=== PATIENT | female | born 1950 | race Caucasian/White ===

== ENCOUNTER 2018-08-16 04:55 | Inpatient (IN) ==
[2018-08-06 12:24] LABS: Appearance,Urine CLEAR; Bilirubin,Urine NEG (NEG); Color,Urine YELLOW; Glucose,Urine (UA) NEGATIVE (NEG); Leukocyte Esterase,Urine NEG /uL (NEG); Protein,Urine NEG (NEG); Specific Gravity,Urine 1.017 (1.000-1.035); Urine Blood NEG mg/dL (<0.03); Urobilinogen,Urine NEG (NEG)
[2018-08-06 12:58] LABS: Basophils # (Auto) 0 K/mcL (0.0-0.3); Basophils % (Auto) 0.5 % (0.0-2.0); Eosinophils # (Auto) 0.1 K/mcL (0.0-0.7); Eosinophils % (Auto) 2.5 % (0.0-7.0); Granulocytes % (Auto) 73.2 % (38.0-78.0); Lymphocytes # (Auto) 0.8 K/mcL (1.5-4.8); Lymphocytes % (Auto) 13.9 % (15.5-49.0); Mean Cell Volume 92.6 fL (80.0-100.0); Mean Corpuscular HGB Conc 34.2 g/dL (31.0-36.0); Mean Corpuscular Hemoglobin 31.6 pg (26.0-34.0); Monocytes # (Auto) 0.6 K/mcL (0.1-0.9); Monocytes % (Auto) 9.9 % (1.0-12.0); Platelet Count 380 K/mcL (140-440); RBC 4.04 M/mcL (4.00-5.20); Red Cell Distribution Width 13.1 % (11.5-14.5)
[2018-08-06 13:31] LABS: ALT/SGPT 13 U/l (0-40); Albumin 3.9 gm/dL (3.2-5.2); Albumin/Globulin Ratio 1.3 (1.0-2.3); Alkaline Phosphatase 61 U/L (39-117); Blood Urea Nitrogen 13 mg/dl (8-23)
[2018-08-16] MEDS ORDERED: ceFAZolin 1 GM VIAL IV SCH (05:00)
[2018-08-16] MEDS ORDERED: IPRATROPIUM/ALBUTEROL 3 ML AMPUL.NEB NEB ONE (07:18)
[2018-08-16] MEDS ORDERED: ONDANSETRON 4 MG/2 ML VIAL IV ONE (07:35)
[2018-08-16] MEDS ORDERED: LIDOCAINE HCL/PF 100 MG/5 ML SYRINGE IV ONE (07:35)
[2018-08-16] MEDS ORDERED: fentaNYL 250 MCG/5 ML VIAL IV ONE (07:35)
[2018-08-16] MEDS ORDERED: MIDAZOLAM 5 MG/5 ML VIAL IV ONE (07:35)
[2018-08-16] MEDS ORDERED: ePHEDrine 50 MG/ML AMPUL IV ONE (07:35)
[2018-08-16] MEDS ORDERED: TRANEXAMIC ACID 1,000 MG/10 ML VIAL IV ONE (07:35)
[2018-08-16] MEDS ORDERED: GLYCOPYRROLATE 0.2 MG/ML VIAL IV ONE (07:35)
[2018-08-16] MEDS ORDERED: DEXAMETHASONE 10 MG/ML VIAL IV ONE (07:35)
[2018-08-16] MEDS ORDERED: PROPOFOL 200 MG/20 ML VIAL IV ONE (07:35)
[2018-08-16] MEDS ORDERED: PHENYLEPHRINE 10 MG/ML VIAL IV ONE (07:35)
[2018-08-16] MEDS ORDERED: GUM MASTIC/STORAX/MSAL/ALCOHOL 1 DOSE DROPERETTE TOPICAL ONE (08:37)
[2018-08-16] MEDS ORDERED: GELATIN SPONGE,ABSORBABLE 1 EACH SPONGE TOPICAL ONE (08:38)
[2018-08-16] MEDS ORDERED: GELATIN SPONGE,ABSORBABLE 1 GM POWDER TOPICAL ONE (08:40)
[2018-08-16] MEDS ORDERED: THROMBIN (BOVINE) 5,000 UNIT VIAL TOPICAL ONE (08:50)
[2018-08-16] MEDS ORDERED: HEPARIN 20,000 UNIT/ML VIAL IR ONE (08:52)
[2018-08-16] MEDS ORDERED: CALCIUM GLUCONATE 4.65 MEQ/10 ML VIAL TOPICAL ONE (08:53)
[2018-08-16] MEDS ORDERED: ACETAMINOPHEN 700 MG/70 ML BOTTLE IV ONE (09:56)
[2018-08-16] MEDS ORDERED: PROMETHAZINE 25 MG/ML VIAL IM PRN (09:56)
[2018-08-16] MEDS ORDERED: METHOCARBAMOL 1,000 MG/10 ML VIAL IV PRN (09:56)
[2018-08-16] MEDS ORDERED: METOCLOPRAMIDE 10 MG/2 ML VIAL IV PRN (09:56)
[2018-08-16] MEDS ORDERED: MEPERIDINE 25 MG/ML SYRINGE IV PRN (09:56)
[2018-08-16] MEDS ORDERED: ATROPINE SULFATE 0.4 MG/ML VIAL IV PRN (09:56)
[2018-08-16] MEDS ORDERED: diphenhydrAMINE 50 MG/ML VIAL IV PRN (09:56)
[2018-08-16] MEDS ORDERED: ePHEDrine 50 MG/ML AMPUL IV PRN (09:56)
[2018-08-16] MEDS ORDERED: PROMETHAZINE 25 MG/ML VIAL IV PRN (09:56)
[2018-08-16] MEDS ORDERED: HYDROmorphone 2 MG/ML VIAL IV PRN ×2 (09:56→11:25)
[2018-08-16] MEDS ORDERED: METOPROLOL TARTRATE 5 MG/5 ML VIAL IV PRN (09:56)
[2018-08-16] MEDS ORDERED: MEPERIDINE 50 MG/ML INJECTION IM PRN (09:56)
[2018-08-16] MEDS ORDERED: ONDANSETRON 4 MG/2 ML VIAL IV PRN (09:56)
[2018-08-16] MEDS ORDERED: IPRATROPIUM/ALBUTEROL 3 ML AMPUL.NEB NEB PRN (09:56)
[2018-08-16] MEDS ORDERED: FLUMAZENIL 0.1 MG/ML ML IV PRN (09:56)
[2018-08-16] MEDS ORDERED: LACTATED RINGERS 1,000 ML IV SCH (10:00)
[2018-08-16] MEDS ORDERED: BUPIVACAINE 0.25% 50 ML VIAL IJ ONE (10:54)
--- NOTE | 2018-08-16 11:12 | Brief Operative Note ---
Date of procedure: 08/16/18 Pre-op diagnosis: stenosis L5S1 Post-op diagnosis: same Procedure: decompression and fusion L5S1 Grafts/Implants: Yes Anesthesia: GETA Complications: none Surgeon: Lamonte Contreras Continuous Improvement Engineer: Isamar Alcaraz Estimated blood loss (cc): 100 Specimens Removed/Pathology: none sent Condition: stable Disposition: PACU
[2018-08-16] MEDS ORDERED: ONDANSETRON ODT 4 MG TABLET SL PRN (11:25)
[2018-08-16] MEDS ORDERED: BENZOCAINE/MENTHOL 1 LOZENGE PO PRN (11:25)
[2018-08-16] MEDS: fentaNYL 100 MCG/2 ML VIAL IV PRN ×2 (11:42→11:46)
[2018-08-16] MEDS: 0.9 % SODIUM CHLORIDE 10 ML SYRINGE IV SCH ×3 (12:50→23:45)
[2018-08-16] MEDS: 0.9 % SODIUM CHLORIDE 1,000 ML IV SCH ×2 (12:50→17:43)
[2018-08-16] MEDS: ceFAZolin 1 GM VIAL IV SCH ×2 (15:04→23:03)
[2018-08-16] MEDS: HYDROCODONE/APAP 7.5/325MG TABLET PO PRN ×2 (15:31→19:43)
[2018-08-16] MEDS ORDERED: ACETAMINOPHEN 500 MG TABLET PO PRN (16:48)
[2018-08-16] MEDS ORDERED: FLUTICASONE PROPIONATE SPRAY.NAS NS PRN (16:50)
[2018-08-16] MEDS: SERTRALINE 50 MG TABLET PO SCH (17:49)
[2018-08-16] MEDS ORDERED: DIVALPROEX 125 MG CAP.SPRINK PO SCH (18:00)
[2018-08-17] MEDS: HYDROCODONE/APAP 7.5/325MG TABLET PO PRN ×4 (02:49→20:26)
[2018-08-17] MEDS: 0.9 % SODIUM CHLORIDE 1,000 ML IV SCH ×3 (03:08→18:10)
[2018-08-17] MEDS: 0.9 % SODIUM CHLORIDE 10 ML SYRINGE IV SCH ×4 (04:53→20:27)
[2018-08-17] MEDS: LEVOTHYROXINE 75 MCG TABLET PO SCH (07:38)
--- NOTE | 2018-08-17 07:39 | Orthopedic Progress Note ---
Subjective Patient information: Note initiated : 08/17/18 at 7:37 am Service Date, if different from initiated Date: [] Patient: Mer Bowers 67 y/o F admitted on 08/16/18 for L5-S1 Lumbar Decompression with Fusion. Chief Complaint: [] no issues Objective Vital signs: Vital Signs Temp Pulse Resp BP BP Pulse Ox 08/17/18 07:22 98.4 F 65 16 94/57 98 08/17/18 03:44 98.3 F 65 20 103/64 95 08/17/18 00:00 98.7 F 68 20 88/54 97 08/16/18 19:02 98.4 F 70 20 103/65 98 08/16/18 15:15 98.5 F 80 12 108/67 99 08/16/18 14:22 67 116/69 95 08/16/18 13:45 71 120/60 98 08/16/18 13:15 78 107/57 96 08/16/18 13:00 73 106/60 98 08/16/18 12:45 68 113/63 98 08/16/18 12:30 70 114/69 100 08/16/18 12:14 97.9 F 117/62 93 08/16/18 12:05 98 F 65 16 105/58 100 08/16/18 11:45 69 18 118/66 96 08/16/18 11:30 90 16 110/81 100 08/16/18 11:25 74 18 99/86 100 08/16/18 11:20 77 17 120/63 100 08/16/18 11:12 97.8 F 73 11 L 120/67 100 Intake and Output 08/16/18 08/17/18 08/17/18 21:59 05:59 13:59 Intake Total 1538 / 1538 1217 / 1217 Output Total 720 / 720 2510 / 2510 200 / 200 Balance 818 / 818 -1293 / -1293 -200 / -200 Intake: IV 488 / 488 942 / 942 Sodium Chloride 0.9% 1,000 ml @ 488 / 488 942 / 942 100 mls/hr IV .Q10H JADEN Rx#: [id number] Oral 1050 / 1050 275 / 275 Output: Drainage 70 / 70 60 / 60 low back 70 / 70 60 / 60 Void Amount 650 / 650 2450 / 2450 200 / 200 Other: Meal Dinner toast Percent of Meal Consumed 50% 100% Feeding Ability Independent Urine Appearance Clear Clear Urine Color Bright Yellow Bright Yellow Bright Yellow Urine Odor Normal Normal Normal # Voids 1 1 Weight 111 lb 8 oz Intake & Output: Intake & Output 08/16/18 08/17/18 08/17/18 21:59 05:59 13:59 Intake Total 1538 / 1538 1217 / 1217 Output Total 720 / 720 2510 / 2510 200 / 200 Balance 818 / 818 -1293 / -1293 -200 / -200 Weight 111 lb 8 oz Intake: IV 488 / 488 942 / 942 Sodium Chloride 0.9% 1,000 ml @ 488 / 488 942 / 942 100 mls/hr IV .Q10H JADEN Rx#: [id number] Oral 1050 / 1050 275 / 275 Output: Drainage 70 / 70 60 / 60 low back 70 / 70 60 / 60 Void Amount 650 / 650 2450 / 2450 200 / 200 Other: Meal Dinner toast Percent of Meal Consumed 50% 100% Feeding Ability Independent Urine Appearance Clear Clear Urine Color Bright Yellow Bright Yellow Bright Yellow Urine Odor Normal Normal Normal # Voids 1 1 Dressing: Yes clean, Yes dry, Yes intact Weight bearing status: full Neurological exam IM: Yes neurovascular intact - Labs CBC & BMP: 08/17/18 05:34 08/06/18 11:22 Labs: Orthopedic Labs 08/06/18 11:22 PT 13.1 INR 1.0 08/17/18 08/06/18 05:34 11:23 Hgb 9.8 L 12.8 Hct 29.0 L 37.4 Assessment and Plan (1) Lumbar stenosis mobilize possible dc tomorrow Status: Acute
[2018-08-17 07:42] LABS: Blood Urea Nitrogen 7 mg/dl (8-23)
--- NOTE | 2018-08-17 07:45 | Operative Note ---
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 OPERATION PROPOSED: 1. Lumbar decompression with decompressed central canal, lateral recess, and neural foramen, L5-S1. 2. Posterior nonsegmental instrumentation using a [employer] pedicle screw construct, L5-S1. 3. Posterior/posterolateral fusion, L5-S1. 4. Application of prosthetic device interbody space and interbody fusion, L5-S1. 5. Aspiration of iliac crest for osteoprogenitor cells, bilateral iliac crest. OPERATION PERFORMED: 1. Lumbar decompression with decompressed central canal, lateral recess, and neural foramen, L5-S1. 2. Posterior nonsegmental instrumentation using a [employer] pedicle screw construct, L5-S1. 3. Posterior/posterolateral fusion, L5-S1. 4. Application of prosthetic device interbody space and interbody fusion, L5-S1. 5. Aspiration of iliac crest for osteoprogenitor cells, bilateral iliac crest. OPERATING SURGEON: Lamonte Contreras M.D. COMMODITY MANAGEMENT SPECIALIST: Isamar Alcaraz PA-C. INDICATIONS: This is a lady who has had debilitating radicular pain following an L5 dermatome. She has severe foraminal stenosis at the L5-S1 level. She has advanced disk collapse, and it is felt that an adequate decompression of this level would only contribute to additional instability or she would be left with an inadequate decompression. We have elected to proceed with a decompression and fusion. OPERATION IN DETAIL: Informed consent was obtained. The patient was taken to the operating room where she was provided the appropriate anesthetic and prophylactic antibiotics. She was carefully positioned. Her back was prepped sterilely. A midline incision was made. I dissected down to expose the spinous process and lamina L4 through S1. I dissected out and around the facet joint, exposed the transverse process of L5 and the sacral ala. I then placed a marker and a radiograph was obtained to confirm the level of dissection. I then performed the decompression and removed the interspinous ligament at L5-S1. I removed the inferior one-half of spinous process and lamina of L5, and the most superior portion of S1. I then performed an aggressive decompression, extending this out into the neural foramen, debriding a significant portion of the facet at the L5-S1 level. This clearly would have left her unstable, and as such, we elected to proceed with the fusion. Pedicle screws were then placed. I advanced the gearshift awl cannulating the pedicle. I tapped each pedicle. Pedicle was then probed, and I used a ball-tip whip to make sure there was no pedicle wall violation. The pedicle was tapped and I re-probed. I placed an appropriate length pedicle screw at L5-S1, both on the right and on the left, and I then obtained a radiograph to confirm the position of the hardware. I then aspirated the iliac crest for osteoprogenitor cells. This was done by advancing a Jamshidi-type needle into the iliac crest. I aspirated. After every 10 to 15 mL of aspirate, I repositioned the needle. This was done bilaterally. The aspirate was passed to the back table. It was spun down for osteoprogenitor cells. This was later applied to our morcellized bone graft. I then performed the application of a prosthetic device interbody space and interbody fusion. This was done by mobilizing the nerve root towards the midline. I essentially performed a TLIF. I had worked out into the neural foramen. I mobilized the nerve root. I brought in a variety of reji and dilators. By turning the dilators, I was able to distract across the disk space. Distraction was held with a working tiago. I then aggressively curetted the disk space, debriding all disk material. This disk material was removed. I then filled the disk space with morcellized bone graft. I filled a cage with morcellized bone graft. This cage also from [employer]. It was filled with graft and impacted into the site prepared for it. We backfilled even behind this with additional bone. I then performed the posterior and posterolateral fusion. This was done by extensively decorticating the posterolateral aspect of the spine, this being the transverse process, facet joints, sacral ala. I irrigated thoroughly with pulsatile lavage prior to placing any bone graft. I then placed my bone graft and completed the procedure by compressing across the interbody graft. I tightened and torqued the tiago into the top loading pedicle screws. I closed over a deep drain with an 0 Vicryl in interrupted fashion, 2-0 Vicryl inverted deep dermal, and running subcuticular. The procedure was tolerated well. No complications. Estimated blood loss is 100-150 mL. GDD:shanice Job ID: [id number] Doc ID: [id number] Lamonte Contreras MD
[2018-08-17] MEDS ORDERED: DIVALPROEX 125 MG CAP.SPRINK PO SCH (09:00)
[2018-08-17] MEDS: SERTRALINE 50 MG TABLET PO SCH (09:00)
[2018-08-17] MEDS: METHOCARBAMOL 750 MG TABLET PO PRN (20:27)
[2018-08-18] MEDS: HYDROCODONE/APAP 7.5/325MG TABLET PO PRN ×3 (01:39→08:54)
[2018-08-18] MEDS: 0.9 % SODIUM CHLORIDE 10 ML SYRINGE IV SCH (01:40)
[2018-08-18] MEDS: METHOCARBAMOL 750 MG TABLET PO PRN (05:24)
[2018-08-18] MEDS ORDERED: 0.9 % SODIUM CHLORIDE 10 ML SYRINGE IV SCH (06:00)
[2018-08-18] MEDS ORDERED: DOCUSATE SODIUM 100 MG CAPSULE PO PRN (06:11)
--- NOTE | 2018-08-18 06:33 | Discharge Summary ---
Providers - Providers Patient information: Note initiated : 08/18/18 at 6:29 am Service Date, if different from initiated Date: [] Patient: Mer Bowers 67 y/o F admitted on 08/16/18 for L5-S1 Lumbar Decompression with Fusion. Chief Complaint: [S/P L5-S1 decompression and fusion] Patient is doing well. She reports her lower extremity symptoms are improved compared to preoperatively. Denies any new onset lower extremity weakness/ paresthesias. Discharge date: 08/18/18 Hospitalization Hospital course: Postoperatively, the patient was returned to the [facility] where she was provided routine pain management and maintained on prophylactive antibiotics. At the time of discharge, she is doing well and tolerating all medications well. She ambulates without assistance. She is discharged to follow-up with me in 2 weeks. She will call with any questions or concerns whatsoever. Discharge diagnosis: S/P L5-S1 decompression and fusion Reason for admission: The patient was admitted for operative treatment of spinal stenosis L5-S1 Procedures: The patient was taken to the operating room on the date of admission where she underwent a L5-S1 decompression and fusion. The procedure was tolerated well with no complications. Complications: None Exam - Exam Incision healing: Yes Incision draining: No Incision red: No Incision swollen: No Incision inflamed: No Clean and dry: Yes Weight bearing status: as tolerated Ortho Discharge - Spine - Patient Instructions Discharge Diet: Regular Diet Activity: weight bearing as tolerated Spine Protocol: Limit bending and stooping. No heavy lifting. Wear brace/collar at all times except when showering and sleeping. Dressing Care: May shower in 2 days Additional Dressing Instructions: May Shower 48 hours post-operative and replace with dry dressing after shower. - Follow Up Plan Follow Up Appointments: Isamar Alcaraz PA-C [Physician Food Safety Director] - 08/31/18 1:00 pm Disposition: Home, Self-Care Prognosis: Good Rehab Potential: Good Overall status at discharge: patient is progressing back to baseline - Orders For Discharge Prescriptions: Hydrocodone/APAP 7.5/325Mg [Cidra 7.5-325Mg] 1 - 2 tab PO Q4HP PRN #60 tab PRN Reason: Pain Methocarbamol [Robaxin] 750 mg PO Q6HP PRN #40 tab PRN Reason: Muscle Spasm Ondansetron HCl [Zofran ODT] 4 mg SL Q4HP PRN #20 tab PRN Reason: Nausea And Vomiting Pending Studies Resuscitation Status Full Code Diet Regular Diet Start ThuAug 16 Lunch Acetaminophen (Tylenol) 500 mg PO Q6HP PRN PRN Reason: PAIN/FEVER > 101 Last Admin: 08/17/18 01:56 Dose: 500 mg Hydrocodone Bitart/Acetaminophen (Cidra 7.5/325mg) 0 tab PO Q4HP PRN PRN Reason: PAIN LEVEL 3-6 Last Admin: 08/18/18 05:24 Dose: 1 tab Admin: 08/18/18 01:39 Dose: 1 tab Admin: 08/17/18 20:26 Dose: 1 tab Admin: 08/17/18 15:42 Dose: 1 tab Admin: 08/17/18 09:04 Dose: 1 tab Admin: 08/17/18 02:49 Dose: 1 tab Admin: 08/16/18 19:43 Dose: 1 tab Admin: 08/16/18 15:31 Dose: 1 tab Hydromorphone HCl (Dilaudid) 0 mg IV Q2HP PRN PRN Reason: PAIN LEVEL > 6 Last Admin: 08/16/18 12:27 Dose: 1 mg Levothyroxine Sodium (Synthroid) 75 mcg PO QAMAC JADEN Last Admin: 08/17/18 07:38 Dose: 75 mcg Methocarbamol (Robaxin) 750 mg PO Q6HP PRN PRN Reason: Muscle Spasm Last Admin: 08/18/18 05:24 Dose: 750 mg Admin: 08/17/18 20:27 Dose: 750 mg Ondansetron HCl (Zofran Odt) 4 mg SL Q4HP PRN PRN Reason: Nausea And Vomiting Last Admin: 08/16/18 16:18 Dose: 4 mg Sertraline HCl (Zoloft) 100 mg PO DAILY [facility] Last Admin: 08/17/18 09:00 Dose: 100 mg Admin: 08/16/18 17:49 Dose: 100 mg Sodium Chloride (Saline Flush) 10 ml IV Q8 [facility] Last Admin: 08/18/18 05:20 Dose: 10 ml Shift Summary 08/18/18 05:09 Shift Summary by ArianneAna Slept most after 11pm, po pain meds given with Robaxin abraham well. up with Brace does self, gait steady, to and from bathroom self, C/O slight nausea with movement comes and goes. Abd slight distended warm pack given needs to have a BM, no urge at this time, C/O pain down lt leg at times. follow with bedside report, New IV site Initialized on 08/18/18 05:09 - END OF NOTE
--- NOTE | 2018-08-18 06:44 | Orthopedic Progress Note ---
Subjective Patient information: Note initiated : 08/18/18 at 6:42 am Service Date, if different from initiated Date: [] Patient: Mer Bowers 67 y/o F admitted on 08/16/18 for L5-S1 Lumbar Decompression with Fusion. Chief Complaint: [] Ms. Bowers is doing well and ambulates well without assistance. She denies any headaches or new onset paresthesias/weakness. Objective Vital signs: Vital Signs Temp Pulse Resp BP Pulse Ox 08/18/18 04:00 98.2 F 71 12 112/68 95 08/18/18 00:00 99.0 F 73 12 104/63 92 08/17/18 20:00 98.2 F 73 12 105/64 96 08/17/18 15:41 97.6 F 73 14 103/65 97 08/17/18 11:51 97.8 F 71 16 92/53 98 08/17/18 07:22 98.4 F 65 16 94/57 98 Intake and Output 08/17/18 08/18/18 08/18/18 21:59 05:59 13:59 Intake Total 500 / 500 200 / 200 Output Total 1140 / 1140 1160 / 1160 Balance -640 / -640 -960 / -960 Intake: Oral 500 / 500 200 / 200 Output: Drainage 40 / 40 10 / 10 low back 40 / 40 10 / 10 Void Amount 1100 / 1100 1150 / 1150 Other: Meal Dinner Percent of Meal Consumed 90% Urine Appearance Clear Urine Color Bright Yellow Straw Urine Odor Normal Weight 111 lb 8 oz Intake & Output: Intake & Output 08/17/18 08/18/18 08/18/18 21:59 05:59 13:59 Intake Total 500 / 500 200 / 200 Output Total 1140 / 1140 1160 / 1160 Balance -640 / -640 -960 / -960 Weight 111 lb 8 oz Intake: Oral 500 / 500 200 / 200 Output: Drainage 40 / 40 10 / 10 low back 40 / 40 10 / 10 Void Amount 1100 / 1100 1150 / 1150 Other: Meal Dinner Percent of Meal Consumed 90% Urine Appearance Clear Urine Color Bright Yellow Straw Urine Odor Normal Incision: Yes healing, Yes clean and dry Incision clean and dry: Yes Dressing: Yes clean, Yes dry, Yes intact Weight bearing status: as tolerated Neurological exam IM: Yes oriented X3, Yes motor sensory intact, Yes neurovascular intact Extremities exam IM: Yes normal inspection, Yes neurovascular intact - Labs CBC & BMP: 08/17/18 05:34 08/17/18 05:34 Labs: Orthopedic Labs 08/06/18 11:22 PT 13.1 INR 1.0 08/18/18 08/17/18 08/06/18 05:05 05:34 11:23 Hgb Pending 9.8 L 12.8 Hct Pending 29.0 L 37.4 Assessment and Plan (1) Lumbar stenosis Discharge to home today. Discharge instructions were provided to the patient. Follow-up in 2 weeks. Status: Acute
[2018-08-18] MEDS: LEVOTHYROXINE 75 MCG TABLET PO SCH (07:35)
[2018-08-18] MEDS: SERTRALINE 50 MG TABLET PO SCH (08:55)
== END 2018-08-18 12:10 | disposition home or self-care (01) | DRG 455 ==
LOC: MEDSUR 04:55
PROVIDERS: ADMIT Orthopaedic Surgery Orthopaedic Surgery of the Spine; ATTEND Orthopaedic Surgery Orthopaedic Surgery of the Spine
PROC: LUMDECF (ICD-10-PCS; 2018-08-16 07:30)
CPT/HCPCS: 80047; 85014; 97161; 97165; C1713; J0131; J0610; J0690; J1100; J1170; J1644; J2001; J2250; J2370; J2405; J2800; J3010; J7030; J7120; J7620; J7620-GY; L0627